=== PATIENT | male | born 1965 ===

== ENCOUNTER 2024-01-06 06:52 | Day surgery (SDC) | payer BC ==
[2024-01-06] VITALS (10 sets, daily range): BP systolic 129–157; BP diastolic 87–103; PULSE 56–65; TEMP 98
[~2024-01-06] VITALS: Ht 180.3 cm; Wt 118.0 kg
[2024-01-06] MEDS ORDERED: 1/2 NS 1,000 ML IV SCH (07:45)
[2024-01-06] MEDS ORDERED: ASPIRIN E.C. 8181 MG PO (07:54)
[2024-01-06] MEDS ORDERED: HYZAAR 25 MG-101 TAB PO (07:57)
[2024-01-06] MEDS ORDERED: NORVASC 5MG5 MG/TAB PO (07:58)
[2024-01-06 08:00] LABS: HEMATOCRIT 38.7 % (42.0-52.0); HEMOGLOBIN 13.4 g/dl (13.5-18.0); MEAN CELL VOLUME 92 fl (80.0-100.0); MEAN CORPUSCULAR HEMOGLOBIN 32 pg (27-31); MEAN CORPUSCULAR HGB CONC 35 g/dl (33.0-37.0); MEAN PLATELET VOLUME 10.3 fl (7.4-10.4); PLATELET COUNT 225 K/mm3 (130-400); RED BLOOD COUNT 4.21 M/mm3 (4.20-5.60); REDCELL DISTRIBUTION WIDTH-CV 12.9 % (11.5-14.5)
[2024-01-06 08:09] LABS: INR 0.9 (0.8-3.0); PROTHROMBIN TIME 10.3 SECONDS (9.7-12.8)
[2024-01-06 08:11] LABS: PARTIAL THROMBOPLASTIN TIME 33.1 SECONDS (26.0-37.0)
[2024-01-06 08:50] LABS: CALCIUM 8.7 mg/dL (8.4-10.2); CREATININE, serum 0.86 mg/dL (0.72-1.25); POTASSIUM 3.5 mmol/L (3.5-4.5)
--- NOTE | 2024-01-06 09:28 | NUR ---
SEE MERGE FOR PROCEDURE DOCUMENTATION
[2024-01-06] MEDS ORDERED: Nitroglycerin 100 MCG/ML (Cath Lab) 10 ML VIAL IA SCH (10:10)
[2024-01-06] MEDS ORDERED: Heparin 1,000 UNITS/ML 10 ML Multi-Dose VIAL IV SCH (10:11)
[2024-01-06] MEDS ORDERED: Verapamil 2.5 MG/ML 2 ML VIAL IA SCH (10:12)
[2024-01-06] MEDS ORDERED: Iohexol 350 - 100 ML VIAL INCOR ONE (10:14)
[2024-01-06] MEDS ORDERED: fentaNYL 50 MCG/ML 2 ML VIAL IV SCH (10:15)
[2024-01-06] MEDS ORDERED: Midazolam 2 MG/2 ML VIAL IV SCH (10:15)
--- NOTE | 2024-01-06 10:45 | NUR ---
pt returned to eu 12 via bed from lab coordinator, awake and alert. No c/o pain or SOB, call light in reach, reviewed activity level with pt on right wrist, and to right groin, has 4x4 to site, site is soft, no drainage, declined water at this time, uses phone.
--- NOTE | 2024-01-06 10:50 | NUR ---
PATIENT ALERT AND ORIENTED, DENIES PAIN. GROIN ACCESS SITE AND RIGHT RADIAL SITE ASSESSED, SOFT TO PALPATION AND DRESSING CDI. PATIENT BROUGHT TO EXPRESS 12, FRIEND BROUGHT TO BEDSIDE. VITAL SIGNS TAKEN, HYPERTENSION NOTED PER BASELINE PRIOR TO PROCEDURE. TRANSFER OF CARE REPORT GIVEN TO IRINA TYSON. CALL LIGHT PLACED WITHIN REACH, BED IN LOWEST POSITION, X3 BEDRAILS IN PLACE.
--- NOTE | 2024-01-06 11:30 | NUR ---
pt dozes, takes juice, con't supine, dressing to right groin remains clean and dry, no swelling
[2024-01-06] MEDS ORDERED: amLODIPine 5 MG TAB PO ONE (13:00)
--- NOTE | 2024-01-06 13:10 | NUR ---
Dr Suresh cosme concerning b/p new orders recived, for home med Norvasc 5mg po, pt sat on edge of bed, tolerated well, site to right groin remains the same, dressing dry, no welling, released 2cc of air over 15 min with no ooozing or swelling to puncture site, bandaid over site, wrapped in coban for support.
--- NOTE | 2024-01-06 13:45 | NUR ---
PT UP TO B/R, GAIT STEADY, SITS ON SIDE OF BED, DECLINED SNACK EXCEPT JUICE. SITE TO RIGHT GRON REMAINS CLEAN AND DRY, NO SWELLING. IV D'CD INTACT. REVIEWED PT INST. ON ACTIVITY AND PRECAUTIONS ON BOTH SITES FOR RADIAL AND VENOUS PUNCTURE, NO NEW MEDS, FOLLOWUP APPT MADE. PT DISCHARGED AT 1410 VIA W/C TO CAR WITH FRIEND
== END 2024-01-06 14:10 | disposition home or self-care (01) ==
LOC: COL.CAR 06:52
PROVIDERS: Internal Medicine Cardiovascular Disease
DX: R07.89 Other chest pain (principal); R94.39 Abnormal result of other cardiovascular function study; R06.02 Shortness of breath; I10 Essential (primary) hypertension; E66.9 Obesity, unspecified; R42 Dizziness and giddiness; R09.89 Other specified symptoms and signs involving the circulatory and respiratory systems; F17.210 Nicotine dependence, cigarettes, uncomplicated; Z68.39 Body mass index [BMI] 39.0-39.9, adult; Z79.899 Other long term (current) drug therapy
CPT/HCPCS: C1769; C1894; J1644; J2250; J3010; Q9967